=== PATIENT | male | born 1975 | race Caucasian/White ===

== ENCOUNTER 2019-11-06 09:53 | Emergency (ER) | payer BC ==
[~2019-11-06] VITALS: Ht 175.3 cm; Wt 100.0 kg
[2019-11-06 09:54] VITALS: BP 144/90
[2019-11-06] MEDS ORDERED: TAM75C PO (10:50)
== END 2019-11-06 11:08 | disposition home or self-care (01) ==
LOC: ER 09:54
DX: B34.9 Viral infection, unspecified (principal); R51 Headache; R50.9 Fever, unspecified; R05 Cough; J02.9 Acute pharyngitis, unspecified; Z79.899 Other long term (current) drug therapy
CPT/HCPCS: 87502; 87503; 99283